=== PATIENT | female | born 1955 ===

== ENCOUNTER 2021-12-31 00:45 | Inpatient (IN) | payer MEDICARE, OTHER ==
[2021-12-31 01:18] VITALS: BMI 23.5
[2021-12-31] MEDS ORDERED: LACTATED RINGERS SOLUTION 1000 ML INFUS.BAG IV ONE ×2 (02:29→04:28)
[2021-12-31] MEDS ORDERED: ACETAMINOPHEN 1000 MG/100 ML BAG IVPB ONE (02:39)
[2021-12-31 02:40] LABS: VENOUS BASE EXCESS 3.4 mmol/L (-2-2); VENOUS O2 SATURATION 90.3 % (70-80); VENOUS PCO2 45.1 mmHg (38-52); VENOUS PH 7.416 (7.310-7.410)
[2021-12-31] MEDS ORDERED: ACETAMINOPHEN INJECTION 100 ML IVPB ONE (02:41)
[2021-12-31 02:47] LABS: BASO % 0.5 % (0-2.0); EOS % 2.3 % (0-4.5); HEMATOCRIT 30.1 % (32.4-45.2); HEMOGLOBIN 9.6 GM/dL (10.7-15.3); LYMPH % 10.1 % (8-40); MCH 27.1 pg (25.7-33.7); MEAN CELL VOLUME 84.6 fl (80-96); MEAN PLT VOLUME 10.2 fl (7.5-11.1); MONO % 7.2 % (3.8-10.2); NEUT % 79.9 % (42.8-82.8); PLATELET COUNT 413 10^3/uL (134-434); RBC 3.56 M/mm3 (3.60-5.2); RDW 16.3 % (11.6-15.6); WHITE BLOOD COUNT 16.9 K/mm3 (4.0-10.0)
[2021-12-31 02:54] LABS: INR 1.56 (0.83-1.09)
[2021-12-31 02:57] LABS: ACTIVATED PTT 33.9 SECONDS (25.2-36.5)
[2021-12-31 03:01] LABS: BLOOD UREA NITROGEN 19.5 mg/dL (7-18); CALCIUM 10.5 mg/dL (8.5-10.1)
[2021-12-31 03:04] LABS: CREATININE 0.6 mg/dL (0.55-1.3)
[2021-12-31 03:06] LABS: BILIRUBIN,TOTAL 0.4 mg/dL (0.2-1)
[2021-12-31] MEDS ORDERED: PIPERACILLIN/TAZOB 3.375 GM 3.375 GM in DEXTROSE 5%-WATER - 50 ML IVPB ONE (03:48)
[2021-12-31] MEDS ORDERED: VANCOMYCIN 1 GM in D5W (PRE-DOCKED) 1,000 MG/250 ML IVPB ONE (03:48)
[2021-12-31] MEDS ORDERED: VANCOMYCIN 1 GRAM (PRE-DOCKED) 1,000 MG/250 ML BAG IVPB ONE (03:59)
[2021-12-31] MEDS ORDERED: PIPERACILLIN/TAZOB 3.375 GM 3.375 GM/50 ML BAG IVPB ONE (04:00)
[2021-12-31] MEDS ORDERED: VANCOMYCIN 1,000 MG in DEXTROSE 5%-WATER - 250 ML IVPB SCH ×2 (07:00→17:00)
[2021-12-31 08:39] LABS: EPI CELLS 16 /uL (0-25.1); HYALINE CASTS 2 /uL (0-3.1); PH,URINE 8.5 (5.0-8.0); URINE APPEARANCE CLOUDY; URINE BILIRUBIN NEGATIVE (NEGATIVE); URINE COLOR YELLOW; URINE GLUCOSE (UA) NEGATIVE (NEGATIVE); URINE KETONE NEGATIVE (NEGATIVE); URINE LEUK ESTERASE 2+ (NEGATIVE); URINE NITRITE POSITIVE (NEGATIVE); URINE PROTEIN NEGATIVE (NEGATIVE); URINE RBC 31 /uL (0-23.9); URINE UROBILINOGEN 0.2 mg/dL (0.2-1.0); URINE WBC 43 /uL (0-25.8)
[2021-12-31 09:58] LABS: URINE BACTERIA 937.3 /uL (0-1359)
[2021-12-31] MEDS: levETIRAcetam 500 MG/5 ML INJECTION VIAL IVPB SCH ×2 (10:20→22:35)
[2021-12-31] MEDS: PIPERACILLIN/TAZOB 4.5 GM 4.5 GM in DEXTROSE 5%-WATER 100 ML IVPB SCH ×3 (15:45→17:31)
[2021-12-31] MEDS ORDERED: DEXTROSE 5%-WATER 100 ML IVPB ONE (16:57)
[2021-12-31] MEDS ORDERED: PIPERACILLIN/TAZOBACTAM 4.5 GM VIAL IVPB ONE (16:57)
[2021-12-31] MEDS: VANCOMYCIN/WATER FOR INJ (PEG) 1,000 MG/200 ML BAG IVPB SCH (18:37)
[2022-01-01] MEDS ORDERED: PIPERACILLIN/TAZOBACTAM 4.5 GM VIAL IVPB ONE ×3 (00:26→15:53)
[2022-01-01] MEDS ORDERED: DEXTROSE 5%-WATER 100 ML IVPB ONE ×3 (00:28→15:54)
[2022-01-01] MEDS: PIPERACILLIN/TAZOB 4.5 GM 4.5 GM in DEXTROSE 5%-WATER 100 ML IVPB SCH ×3 (02:11→17:26)
[2022-01-01] MEDS: VANCOMYCIN/WATER FOR INJ (PEG) 1,000 MG/200 ML BAG IVPB SCH (05:34)
[2022-01-01] MEDS: levETIRAcetam 500 MG/5 ML INJECTION VIAL IVPB SCH ×2 (09:56→21:42)
[2022-01-01] MEDS: ALBUTEROL SO4 0.083% IH SOL 2.5 MG/3 ML VIAL.NEB. NEB SCH ×2 (15:24→19:44)
[2022-01-01 18:01] LABS: BLOOD UREA NITROGEN 13.9 mg/dL (7-18); CALCIUM 9.9 mg/dL (8.5-10.1)
[2022-01-01 18:02] LABS: ALBUMIN 2.6 g/dl (3.4-5.0)
[2022-01-01 18:05] LABS: CREATININE 0.5 mg/dL (0.55-1.3)
[2022-01-01 18:06] LABS: BILIRUBIN,TOTAL 0.4 mg/dL (0.2-1); TOT PROT 7.1 g/dl (6.4-8.2)
[2022-01-01 20:23] LABS: EOS % 1.2 % (0-4.5); HEMATOCRIT 28.8 % (32.4-45.2); HEMOGLOBIN 9.1 GM/dL (10.7-15.3); MCHC 31.5 g/dl (32.0-36.0); MEAN CELL VOLUME 85.8 fl (80-96); MEAN PLT VOLUME 9.3 fl (7.5-11.1); MONO % 6.6 % (3.8-10.2); NEUT % 81.2 % (42.8-82.8); PLATELET COUNT 332 10^3/uL (134-434); RBC 3.35 M/mm3 (3.60-5.2); RDW 15.9 % (11.6-15.6)
[2022-01-01] MEDS: ACETAMINOPHEN 1000 MG/100 ML BAG IVPB PRN (20:36)
[2022-01-02] MEDS ORDERED: DEXTROSE 5%-WATER 100 ML IVPB ONE ×3 (01:15→17:21)
[2022-01-02] MEDS ORDERED: PIPERACILLIN/TAZOBACTAM 4.5 GM VIAL IVPB ONE ×3 (01:15→17:21)
[2022-01-02] MEDS: PIPERACILLIN/TAZOB 4.5 GM 4.5 GM in DEXTROSE 5%-WATER 100 ML IVPB SCH ×3 (01:52→17:42)
[2022-01-02 07:32] LABS: BASO % 0.7 % (0-2.0); EOS % 1.3 % (0-4.5); HEMATOCRIT 25.5 % (32.4-45.2); HEMOGLOBIN 8.2 GM/dL (10.7-15.3); LYMPH % 8.2 % (8-40); MCH 27.5 pg (25.7-33.7); MCHC 32.1 g/dl (32.0-36.0); MEAN CELL VOLUME 85.4 fl (80-96); MEAN PLT VOLUME 9.4 fl (7.5-11.1); MONO % 7.1 % (3.8-10.2); NEUT % 82.7 % (42.8-82.8); PLATELET COUNT 318 10^3/uL (134-434); RBC 2.98 M/mm3 (3.60-5.2); RDW 15.8 % (11.6-15.6); WHITE BLOOD COUNT 13.9 K/mm3 (4.0-10.0)
[2022-01-02] MEDS: ALBUTEROL SO4 0.083% IH SOL 2.5 MG/3 ML VIAL.NEB. NEB SCH ×4 (07:45→20:05)
[2022-01-02 08:05] LABS: ALBUMIN 2.4 g/dl (3.4-5.0)
[2022-01-02 08:07] LABS: BILIRUBIN,DIRECT 0.2 mg/dL (0.0-0.2)
[2022-01-02 08:09] LABS: BILIRUBIN,TOTAL 0.4 mg/dL (0.2-1); TOT PROT 6.8 g/dl (6.4-8.2)
[2022-01-02 08:20] LABS: CALCIUM 9.3 mg/dL (8.5-10.1)
[2022-01-02 08:21] LABS: ALBUMIN 2.4 g/dl (3.4-5.0); BLOOD UREA NITROGEN 12.8 mg/dL (7-18)
[2022-01-02 08:26] LABS: TOT PROT 6.9 g/dl (6.4-8.2)
[2022-01-02 08:29] LABS: BILIRUBIN,TOTAL 0.4 mg/dL (0.2-1)
[2022-01-02 08:33] LABS: CREATININE 0.4 mg/dL (0.55-1.3)
[2022-01-02] MEDS: levETIRAcetam 500 MG/5 ML INJECTION VIAL IVPB SCH ×2 (09:43→21:28)
[2022-01-02 12:21] LABS: HEPATITIS B SURFACE AG MATERN NON-REACTIVE (NONREACTIVE)
[2022-01-03] MEDS ORDERED: PIPERACILLIN/TAZOBACTAM 4.5 GM VIAL IVPB ONE ×3 (01:05→16:46)
[2022-01-03] MEDS ORDERED: DEXTROSE 5%-WATER 100 ML IVPB ONE ×3 (01:06→16:46)
[2022-01-03] MEDS: PIPERACILLIN/TAZOB 4.5 GM 4.5 GM in DEXTROSE 5%-WATER 100 ML IVPB SCH ×3 (01:24→18:43)
[2022-01-03] MEDS: ACETAMINOPHEN 1000 MG/100 ML BAG IVPB PRN (02:43)
[2022-01-03] MEDS: ALBUTEROL SO4 0.083% IH SOL 2.5 MG/3 ML VIAL.NEB. NEB SCH ×4 (07:40→20:30)
[2022-01-03] MEDS ORDERED: ENOXAPARIN NA (PORCINE) 40 MG/0.4 ML DISP.SYRIN SQ SCH (10:00)
[2022-01-03] MEDS: levETIRAcetam 500 MG/5 ML INJECTION VIAL IVPB SCH ×2 (10:01→21:12)
[2022-01-03 11:08] LABS: BASO % 0.7 % (0-2.0); HEMATOCRIT 27.1 % (32.4-45.2); HEMOGLOBIN 8.6 GM/dL (10.7-15.3); MCHC 31.6 g/dl (32.0-36.0); MEAN CELL VOLUME 85.3 fl (80-96); MEAN PLT VOLUME 9.5 fl (7.5-11.1); MONO % 8.4 % (3.8-10.2); NEUT % 75.9 % (42.8-82.8); PLATELET COUNT 334 10^3/uL (134-434); RBC 3.17 M/mm3 (3.60-5.2); RDW 15.7 % (11.6-15.6); WHITE BLOOD COUNT 11.8 K/mm3 (4.0-10.0)
[2022-01-03 11:41] LABS: ALBUMIN 2.4 g/dl (3.4-5.0); BLOOD UREA NITROGEN 10.3 mg/dL (7-18)
[2022-01-03 11:42] LABS: CALCIUM 9.4 mg/dL (8.5-10.1)
[2022-01-03 11:44] LABS: ALBUMIN 2.4 g/dl (3.4-5.0)
[2022-01-03 11:46] LABS: CREATININE 0.5 mg/dL (0.55-1.3)
[2022-01-03 11:47] LABS: BILIRUBIN,TOTAL 0.3 mg/dL (0.2-1); TOT PROT 6.9 g/dl (6.4-8.2)
[2022-01-03 11:49] LABS: TOT PROT 6.8 g/dl (6.4-8.2)
[2022-01-03 11:52] LABS: BILIRUBIN,DIRECT 0.2 mg/dL (0.0-0.2)
[2022-01-03] MEDS: KCL 10 MEQ IVPB 10 MEQ/100 ML INFUS.BAG IVPB SCH ×2 (18:54→19:58)
[2022-01-03 20:11] LABS: GLIADIN ANTIBODY IGA 8 units (0-19); GLIADIN ANTIBODY IGG 3 units (0-19); TRANSGLUTAMINASE IGG < 2 U/mL (0-5)
[2022-01-04] MEDS ORDERED: PIPERACILLIN/TAZOBACTAM 4.5 GM VIAL IVPB ONE ×3 (01:11→17:23)
[2022-01-04] MEDS ORDERED: DEXTROSE 5%-WATER 100 ML IVPB ONE ×3 (01:11→17:24)
[2022-01-04] MEDS: PIPERACILLIN/TAZOB 4.5 GM 4.5 GM in DEXTROSE 5%-WATER 100 ML IVPB SCH ×3 (02:12→17:41)
[2022-01-04] MEDS: ACETAMINOPHEN 1000 MG/100 ML BAG IVPB PRN (06:27)
[2022-01-04] MEDS: ALBUTEROL SO4 0.083% IH SOL 2.5 MG/3 ML VIAL.NEB. NEB SCH ×4 (07:30→20:27)
[2022-01-04 07:36] LABS: BASO % 0.8 % (0-2.0); EOS % 5.4 % (0-4.5); HEMATOCRIT 24.7 % (32.4-45.2); HEMOGLOBIN 8.1 GM/dL (10.7-15.3); LYMPH % 17.3 % (8-40); MCH 27.5 pg (25.7-33.7); MCHC 32.6 g/dl (32.0-36.0); MEAN CELL VOLUME 84.4 fl (80-96); MEAN PLT VOLUME 9.1 fl (7.5-11.1); NEUT % 67.5 % (42.8-82.8); PLATELET COUNT 327 10^3/uL (134-434); RBC 2.93 M/mm3 (3.60-5.2); RDW 15.8 % (11.6-15.6); WHITE BLOOD COUNT 9.9 K/mm3 (4.0-10.0)
[2022-01-04 07:53] LABS: ALBUMIN 2.2 g/dl (3.4-5.0); BLOOD UREA NITROGEN 11.2 mg/dL (7-18)
[2022-01-04 07:54] LABS: CALCIUM 8.7 mg/dL (8.5-10.1)
[2022-01-04 07:55] LABS: BILIRUBIN,DIRECT 0.1 mg/dL (0.0-0.2)
[2022-01-04 07:56] LABS: CREATININE 0.4 mg/dL (0.55-1.3)
[2022-01-04 07:57] LABS: BILIRUBIN,TOTAL 0.2 mg/dL (0.2-1); TOT PROT 6.4 g/dl (6.4-8.2)
[2022-01-04] MEDS ORDERED: APIXABAN 5 MG TABLET GT SCH (09:15)
[2022-01-04] MEDS: ASPIRIN 81 MG CHEWABLE TABLETS GT SCH (10:38)
[2022-01-04] MEDS: APIXABAN 2.5 MG TABLET GT SCH ×2 (10:38→21:56)
[2022-01-04] MEDS: levETIRAcetam 500 MG/5 ML ORAL SOLUTION (UNIT-DOSE CUPS) GT SCH ×4 (11:18→23:59)
[2022-01-04] MEDS: FAMOTIDINE 40 MG/5 ML ORAL SUSPENSION GT SCH ×3 (11:18→21:57)
[2022-01-04] MEDS ORDERED: MIRTAZAPINE 15 MG TABLET (FP) GT SCH (22:00)
[2022-01-04] MEDS ORDERED: ATORVASTATIN CA 80 MG TABLET (FP) GT SCH (22:00)
[2022-01-05] MEDS ORDERED: PIPERACILLIN/TAZOBACTAM 4.5 GM VIAL IVPB ONE ×3 (00:52→17:31)
[2022-01-05] MEDS ORDERED: DEXTROSE 5%-WATER 100 ML IVPB ONE ×3 (00:52→17:31)
[2022-01-05] MEDS: PIPERACILLIN/TAZOB 4.5 GM 4.5 GM in DEXTROSE 5%-WATER 100 ML IVPB SCH ×3 (01:38→17:34)
[2022-01-05] MEDS: ALBUTEROL SO4 0.083% IH SOL 2.5 MG/3 ML VIAL.NEB. NEB SCH ×3 (07:23→15:52)
[2022-01-05] MEDS: FAMOTIDINE 40 MG/5 ML ORAL SUSPENSION GT SCH (09:47)
[2022-01-05] MEDS: levETIRAcetam 500 MG/5 ML ORAL SOLUTION (UNIT-DOSE CUPS) GT SCH (11:10)
[2022-01-05] MEDS: APIXABAN 2.5 MG TABLET GT SCH (11:10)
[2022-01-05] MEDS: ASPIRIN 81 MG CHEWABLE TABLETS GT SCH (11:11)
[2022-01-05 11:52] LABS: BASO % 0.8 % (0-2.0); HEMATOCRIT 28.1 % (32.4-45.2); LYMPH % 13.8 % (8-40); MCH 27.1 pg (25.7-33.7); MEAN CELL VOLUME 84.7 fl (80-96); MEAN PLT VOLUME 8.9 fl (7.5-11.1); MONO % 6.4 % (3.8-10.2); PLATELET COUNT 361 10^3/uL (134-434); RBC 3.32 M/mm3 (3.60-5.2); RDW 15.8 % (11.6-15.6); WHITE BLOOD COUNT 11.1 K/mm3 (4.0-10.0)
[2022-01-05 12:11] LABS: ALBUMIN 2.5 g/dl (3.4-5.0); BLOOD UREA NITROGEN 10.6 mg/dL (7-18); MAGNESIUM 2.1 mg/dL (1.8-2.4)
[2022-01-05 12:15] LABS: CREATININE 0.5 mg/dL (0.55-1.3)
[2022-01-05 12:16] LABS: BILIRUBIN,TOTAL 0.2 mg/dL (0.2-1); TOT PROT 6.9 g/dl (6.4-8.2)
[2022-01-05 18:44] VITALS: BP 109/76; PULSE 79; TEMP 98.5
== END 2022-01-05 19:15 | DRG 871 ==
LOC: JER 00:45 → JERBED 04:49 → J4W 09:24
PROVIDERS: ADMIT Internal Medicine; ATTEND Family Medicine
DX: A41.9 Sepsis, unspecified organism (principal); G93.41 Metabolic encephalopathy; J96.21 Acute and chronic respiratory failure with hypoxia; J18.9 Pneumonia, unspecified organism; J44.1 Chronic obstructive pulmonary disease with (acute) exacerbation; N17.9 Acute kidney failure, unspecified; J44.0 Chronic obstructive pulmonary disease with (acute) lower respiratory infection; F03.90 Unspecified dementia, unspecified severity, without behavioral disturbance, psychotic disturbance, mood disturbance, and anxiety; I10 Essential (primary) hypertension; G40.909 Epilepsy, unspecified, not intractable, without status epilepticus; F20.9 Schizophrenia, unspecified; F32.9 Major depressive disorder, single episode, unspecified; D64.9 Anemia, unspecified; E78.5 Hyperlipidemia, unspecified; K21.9 Gastro-esophageal reflux disease without esophagitis; D72.829 Elevated white blood cell count, unspecified; E87.6 Hypokalemia; E83.52 Hypercalcemia
CPT/HCPCS: 0241U-QW; 36415; 71045-TC-FY; 74018-TC-FY; 76700-TC; 80053; 80076; 80177; 81003; 82553; 82728; 82784; 82803; 83516; 83540; 83550; 83605; 83735; 84484; 85025; 85610; 85730; 86038; 86705; 86803; 87040; 87086; 87340; 87517; 87899; 93005; 93010; 93970-TC; 94640; 99285-25